=== PATIENT | male | born 1935 | race Caucasian/White ===

== ENCOUNTER → 2016-10-03 | Outpatient (CLI) | payer MEDICARE, OTHER | END | disposition home or self-care (01) | LOC: GMAB 11:34 | PROVIDERS: ATTEND Family Medicine | DX: R06.2 Wheezing (principal); R06.02 Shortness of breath ==

== ENCOUNTER 2016-10-09 09:06 | Emergency (ER) | payer MEDICARE, OTHER ==
[2016-10-09 09:32] VITALS: TEMP 98
--- NOTE | 2016-10-09 09:40 | ED.PDOC ---
History of Present Illness - General Chief Complaint: Neuro Symptoms/Deficits Stated Complaint: ams, cough Time Seen by Provider: 10/09/16 09:07 Source: patient, RN notes reviewed, Vital Signs reviewed, family Exam Limitations: no limitations - History of Present Illness Initial Comments: Per daughter, patient was diagnosed with a URI 6 days ago. He was placed on Levaquin and cough medication with Codeine. Since then he has had progressively worsening altered mental status. He has lucid periods interspersed with hallucinations and thinking it is sometime in the past. HE has only taken 3 doses of Levaquin but has almost finished the cough syrup. Daughter reports he is normally very sharp with no mental status issues. While talking to nurse he answered everything appropriately but when I went in to talk to him he kept drifting off and falling asleep. Timing/Duration: 1 week Severity: moderate Improving Factors: nothing Worsening Factors: nothing Associated Symptoms: confusion Allergies/Adverse Reactions: Allergies Morphine Allergy (Verified 10/09/16 09:33) Home Medications: Ambulatory Orders Azithromycin [Zithromax Z-Jonn] 1 ea PO DAILY #1 pack 10/09/16 Review of Systems - Review of Systems Constitutional: States: no symptoms reported EENTM: States: no symptoms reported Respiratory: States: cough. Denies: short of breath, stridor Cardiology: States: no symptoms reported. Denies: chest pain, edema, palpitations Gastrointestinal/Abdominal: States: no symptoms reported Genitourinary: States: no symptoms reported Musculoskeletal: States: no symptoms reported Skin: States: no symptoms reported Neurological: States: see HPI Endocrine: States: no symptoms reported Hematologic/Lymphatic: States: no symptoms reported Past Medical History (General) - Patient Medical History Hx Stroke: No Hx Cardiac Disorders: Yes - [place] x2 Hx Congestive Heart Failure: Yes Hx Pacemaker: Yes Hx Hypertension: Yes Hx Diabetes: Yes Hx Cancer: No Hx MRSA: No Surgical History: other - Vaccination History Hx Tetanus, Diphtheria Vaccination: No Hx Influenza Vaccination: Yes Hx Pneumococcal Vaccination: Yes - Social History Hx Tobacco Use: No Hx Alcohol Use: No Hx Substance Use: No Hx Substance Use Treatment: No Hx Depression: No - Activities of Daily Living Hospice Agency (if applicable):: None - Female History Patient is a Female of Child Bearing Age (10 -59 yrs old): No Patient : No Family Medical History - Family History Mother Family History: Unknown Living Status: Father Living Status: Cause of : [place] Physical Exam - Physical Exam General Appearance: Comfortable, No apparent distress, Well Developed, Well Groomed, Well Hydrated, Well Nourished Neck: non-tender, full range of motion, supple, lymphadenopathy (R), lymphadenopathy (L) Respiratory: no respiratory distress, no accessory muscle use, decreased breath sounds - @ bilateral bases Cardiovascular/Chest: normal peripheral pulses, regular rate, rhythm, no edema, no gallop, no JVD, no murmur Peripheral Pulses: posterior tibialis,right: 2+, posterior tibialis,left: 2+ Gastrointestinal/Abdominal: normal bowel sounds, non tender, soft, no organomegaly, no pulsatile mass Extremities Exam: non-tender, normal range of motion, no evidence of injury 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 Discussed with daughter. Suspect his symptoms are from the medication. Will stop Levaquin and cough medication. Advised to add back afternoon lasix dose for 3-7 days. Will give Rx for Zithromax to take if needed. Advised if mental status not improved in 3 days get re-evaluated. - Results/Orders Results/Orders: Laboratory Tests 10/09/16 09:45 WBC 8.1 RBC 4.61 L Hgb 14.1 Hct 42.5 MCV 92.0 MCH 30.5 MCHC 33.3 RDW 13.7 Plt Count 219 MPV 8.5 Absolute Neuts (auto) 5.50 Absolute Lymphs (auto) 1.30 Absolute Monos (auto) 0.70 Absolute Eos (auto) 0.50 H Absolute Basos (auto) 0.10 Neutrophils % 68.1 Lymphocytes % 15.7 L Monocytes % 8.7 Eosinophils % 6.1 H Basophils % 1.4 Sodium 137 Potassium 4.3 Chloride 101 Carbon Dioxide 29 Anion Gap 11.3 L BUN 22 H Creatinine 2.01 H BUN/Creatinine Ratio 10.9 Random Glucose 223 H Serum Osmolality 284.1 Calcium 8.7 Total Bilirubin 0.4 AST 16 ALT 9 L Alkaline Phosphatase 96 Creatine Kinase 67 CK-MB (CK-2) 2.8 CK-MB (CK-2) % Not Reportable Troponin I 0.02 B-Natriuretic Peptide 410.0 H* Serum Total Protein 6.7 Albumin 3.4 Globulin 3.3 Albumin/Globulin Ratio 1.0 L - EKG/XRAY/CT XRAY: chest - Mild CHF o/w nl CT Ordered: Yes - Head: no acute intracranial abnormalities. 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 Copy, Patient Portal Self Enrollment Instructions: DI for Adverse Drug Reaction -- Other, DI for Heart Failure Diet: resume usual diet Activity: increase activity as tolerated Referrals: Bello Navarro MD [Primary Care Provider] - 1-5 Days Prescriptions: Azithromycin [Zithromax Z-Jonn] 1 ea PO DAILY #1 pack Home Medications: Ambulatory Orders Azithromycin [Zithromax Z-Jonn] 1 ea PO DAILY #1 pack 10/09/16 Additional Instructions: Stop Levaquin and Cough Syrup Add back afternoon Lasix dose
--- NOTE | 2016-10-09 10:26 | CT ---
EXAM DESCRIPTION: CT head without contrast CLINICAL HISTORY: Altered Mental status COMPARISON: None available TECHNIQUE: Multiple axial images of the head without contrast. FINDINGS: There is no CT evidence of intracranial hemorrhage, mass effect, or large territory acute infarction. Moderate generalized volume loss is present. Moderate patchy hypodensities throughout the supratentorial white matter. 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 There are no abnormal extra-axial fluid collections. Calcific plaque in the visualized arteries. There is no acute calvarial defect. Moderate mucosal thickening in both maxillary sinuses and in the ethmoid air cells. The mastoid air cells are clear. IMPRESSION: 1. No CT evidence of an acute intracranial abnormality. 2. Advanced senescent changes. Electronically signed by: Shahid Hernandez MD 10/09/2016 10:25 AM CDT
--- NOTE | 2016-10-09 10:28 | RAD ---
EXAM DESCRIPTION: Chest,1 View CLINICAL HISTORY: 81 years Male, Altered Mental Status COMPARISON: 12/30/2015 IMPRESSION: The heart is enlarged with central pulmonary vascular congestion. Multilead left chest wall cardiac device again demonstrated. The thoracic aorta is tortuous and severely calcified. Mild perihilar and bibasilar interstitial opacities suggesting CHF with interstitial edema. An atypical infectious/inflammatory process may have a similar appearance. No confluent airspace consolidation, pleural effusion, or pneumothorax. No acute osseous abnormality. Electronically signed by: Shahid Hernandez MD 10/09/2016 10:27 AM CDT
[2016-10-09 10:55] VITALS: BP 144/68; O2SAT 96
== END 2016-10-09 10:58 | disposition home or self-care (01) ==
LOC: ER 09:06
DX: F19.951 Other psychoactive substance use, unspecified with psychoactive substance-induced psychotic disorder with hallucinations (principal); I11.0 Hypertensive heart disease with heart failure; I50.9 Heart failure, unspecified; I25.2 Old myocardial infarction; E11.9 Type 2 diabetes mellitus without complications; Z95.0 Presence of cardiac pacemaker; Z88.6 Allergy status to analgesic agent; Z79.899 Other long term (current) drug therapy

== ENCOUNTER → 2016-10-23 | Outpatient (CLI) | payer MEDICARE, OTHER | END | disposition home or self-care (01) | LOC: GMAB 17:31 | PROVIDERS: ATTEND Family Medicine | DX: G50.0 Trigeminal neuralgia (principal) ==

== ENCOUNTER → 2016-10-24 | Outpatient (CLI) | payer MEDICARE, OTHER ==
--- NOTE | 2016-10-25 05:51 | CT ---
Procedure: CT HEAD WITHOUT IV CONTRAST Exam date: 10/24/2016 11:42 AM CDT Ordering Provider: FOREIGN FLOR Clinical Indication: TIA Comparison: 10/09/2016 Technique: Using a helical scanner, sequential axial imaging of the brain was obtained without the administration of intravenous contrast. The exam was obtained from the skull base to vertex. Findings: Stable region of remote encephalomalacia seen within the superior right posterior frontal lobe. Patchy, diffuse subcortical white matter hypoattenuations, nonspecific yet most suggestive of microvascular ischemic change. Global parenchymal volume loss as well as intracranial atherosclerosis. There is no midline shift or hydrocephalus. There is no acute intracranial hemorrhage or mass effect. There is no CT evidence for acute cortical infarct. Normal-appearing lane and white matter with appropriate sulcation and normal parenchymal volume. The calvarium is intact. There is no fracture. There is no lytic or sclerotic lesion. The visualized paranasal sinuses and mastoid air cells are clear. IMPRESSION: 1. Nonacute CT scan of the brain without intravenous contrast administration. 2. Global parenchymal volume loss and microvascular ischemic changes. 3. Stable small remote right frontal lobe infarction. Electronically signed by: Aramis Duarte MD 10/25/2016 5:50 AM CDT
--- NOTE | 2016-10-25 05:53 | US ---
Procedure: US CAROTID DOPPLER BILATERAL Exam Date: 10/24/2016 11:41 AM CDT Ordering Provider: FOREIGN FLOR Clinical Indication: TIA Comparison: None TECHNIQUE : Real-time cerebrovascular ultrasonography was obtained from sternal notch to the angle of the mandible bilaterally utilizing lane scale, color flow and spectral Doppler analysis. Systolic velocity ratios were calculated for internal carotid artery to common carotid artery bilaterally. FINDINGS: RIGHT CAROTID BIFURCATION: Moderate atherosclerotic plaque. Peak systolic and end-diastolic velocities in the right internal carotid artery are 47 and 13 cm/s. Internal carotid/common carotid ratio is 0.9. Right vertebral flow is antegrade. LEFT CAROTID BIFURCATION: Moderate atherosclerotic plaque. Peak systolic and end-diastolic velocities in the left internal carotid artery are 64 and 14 cm/s. Internal carotid/common carotid ratio is 0.8. Left vertebral flow is antegrade. IMPRESSION: 1. Moderate atherosclerotic plaque in each carotid bulb and ICA origin. 2. There is no significant stenosis (34% on the right and 35% of the left) at both ICA origins. 3. Bilateral antegrade vertebral artery flow. Electronically signed by: Aramis Duarte MD 10/25/2016 5:52 AM CDT
== END | disposition home or self-care (01) ==
LOC: CT 11:34
PROVIDERS: ATTEND Family Medicine
DX: G45.9 Transient cerebral ischemic attack, unspecified (principal)

== ENCOUNTER 2016-11-19 01:26 | Emergency (ER) | payer MEDICARE, OTHER ==
--- NOTE | 2016-11-19 02:25 | ED.PDOC ---
History of Present Illness - General Chief Complaint: Neuro Symptoms/Deficits Time Seen by Provider: 11/19/16 01:26 Source: patient, RN notes reviewed, Vital Signs reviewed, family Exam Limitations: clinical condition - History of Present Illness Timing/Duration: other - Patient slept for about 20 + hours prior to EMS being called Severity: moderate Improving Factors: other - D50 Worsening Factors: nothing Associated Symptoms: cough, shortness of breath, weakness, other - lethargy Allergies/Adverse Reactions: Allergies Codeine Allergy (Verified 11/19/16 01:53) Morphine Allergy (Verified 10/09/16 09:33) Home Medications: Ambulatory Orders Amlodipine Besylate-Atorvastat 11/19/16 Aspirin 11/19/16 Coreg 11/19/16 Donepezil HCl 11/19/16 Duloxetine HCl 11/19/16 Entresto 49-51 mg 11/19/16 Flomax 11/19/16 Gabapentin 11/19/16 Lasix 11/19/16 Plavix 11/19/16 Potassium 11/19/16 Synthroid 11/19/16 Review of Systems - Review of Systems Constitutional: States: malaise EENTM: States: no symptoms reported Respiratory: States: cough, short of breath Cardiology: States: no symptoms reported Gastrointestinal/Abdominal: States: no symptoms reported Genitourinary: States: no symptoms reported Musculoskeletal: States: no symptoms reported Skin: States: no symptoms reported Neurological: States: see HPI, other - Altered mental status Endocrine: States: no symptoms reported Hematologic/Lymphatic: States: no symptoms reported All other Systems: Reviewed and Negative Past Medical History (General) - Patient Medical History Hx Stroke: No Hx Cardiac Disorders: Yes - [place] x2 Hx Congestive Heart Failure: Yes Hx Pacemaker: Yes Hx Hypertension: Yes Hx Thyroid Disease: Yes Hx Diabetes: Yes Hx Cancer: No Hx MRSA: No - Vaccination History Hx Tetanus, Diphtheria Vaccination: Yes Hx Influenza Vaccination: Yes Hx Pneumococcal Vaccination: Yes Immunizations Up to Date: Yes - Social History Hx Tobacco Use: No Hx Alcohol Use: No Hx Substance Use: No Hx Substance Use Treatment: No Hx Depression: No Feels Threatened In a Relationship: No Hx Physical Abuse: No Hx Emotional Abuse: No Hx Suspected Abuse: No - Activities of Daily Living Hospice Agency (if applicable):: None - Female History Patient : No Family Medical History - Family History Mother Family History: Unknown Living Status: Father Living Status: Cause of : [place] Physical Exam - Physical Exam General Appearance: Alert, Comfortable, No apparent distress Eye Exam: bilateral normal Ears, Nose, Throat: normal ENT inspection Neck: normal inspection Respiratory: no respiratory distress, no accessory muscle use, rhonchi, wheezing Cardiovascular/Chest: irregularly irregular Gastrointestinal/Abdominal: normal bowel sounds, non tender, soft, no organomegaly Extremity: pedal edema, swelling Neurologic: alert, other - Oriented x 2, has difficulty forming thoughts and words Skin Exam: normal color, warm/dry Progress - Results/Orders Results/Orders: 11/19/16 11/19/16 01:26 02:26 Temperature 98 F 98.2 F Pulse Rate [ 80 78 tele] Respiratory 20 16 Rate Blood Pressure 142/77 141/78 [left upper arm ] O2 Sat by Pulse 88 L 98 Oximetry 11/19/16 02:36 URINALYSIS Stat Laboratory Results WBC 8.2 K/mm3 (4.8-10.8) 11/19/16 01:40 RBC 4.31 M/mm3 (4.70-6.10) L 11/19/16 01:40 Hgb 13.2 gm/dL (14.0-18.0) L 11/19/16 01:40 Hct 40.4 % (42.0-52.0) L 11/19/16 01:40 MCV 93.7 fl (80.0-94.0) 11/19/16 01:40 MCH 30.6 pg (27.0-31.0) 11/19/16 01:40 MCHC 32.6 g/dL (33.0-37.0) L 11/19/16 01:40 RDW 14.5 % (11.5-14.5) 11/19/16 01:40 Plt Count 145 K/mm3 (130-400) 11/19/16 01:40 MPV 9.8 fl (7.40-10.4) 11/19/16 01:40 Absolute Neuts (auto) 6.20 K/uL (1.8-6.8) 11/19/16 01:40 Absolute Lymphs (auto) 1.10 K/uL (1.0-3.4) 11/19/16 01:40 Absolute Monos (auto) 0.80 K/uL (0.2-0.8) 11/19/16 01:40 Absolute Eos (auto) 0.00 K/uL (0.0-0.4) 11/19/16 01:40 Absolute Basos (auto) 0.10 K/uL (0.0-0.1) 11/19/16 01:40 Neutrophils % 74.6 % (42.0-78.0) 11/19/16 01:40 Lymphocytes % 13.6 % (20.0-50.0) L 11/19/16 01:40 Monocytes % 10.3 % (2.0-9.0) H 11/19/16 01:40 Eosinophils % 0.5 % (1.0-5.0) L 11/19/16 01:40 Basophils % 1.0 % (0.0-2.0) 11/19/16 01:40 PT 11.9 SECONDS (9.4-12.5) 11/19/16 01:40 INR 1.050 11/19/16 01:40 PTT (SP) 25.2 SECONDS (25.1-36.5) 11/19/16 01:40 Sodium 137 mmol/L (135-145) 11/19/16 01:40 Potassium 4.7 mmol/L (3.6-5.0) 11/19/16 01:40 Chloride 104 mmol/L (101-111) 11/19/16 01:40 Carbon Dioxide 27 mmol/L (21-31) 11/19/16 01:40 Anion Gap 10.7 (12-18) L 11/19/16 01:40 BUN 25 mg/dL (7-18) H 11/19/16 01:40 Creatinine 2.19 mg/dL (0.6-1.3) H 11/19/16 01:40 BUN/Creatinine Ratio 11.4 (10-20) 11/19/16 01:40 Random Glucose 129 mg/dL (70-105) H 11/19/16 01:40 Serum Osmolality 279.9 mOsm/L (275-295) 11/19/16 01:40 Calcium 8.5 mg/dL (8.4-10.2) 11/19/16 01:40 Magnesium 1.7 mg/dL (1.8-2.5) L 11/19/16 01:40 Total Bilirubin 0.8 mg/dL (0.2-1.0) 11/19/16 01:40 Direct Bilirubin 0.1 mg/dL (0-0.2) 11/19/16 01:40 Indirect Bilirubin 0.7 mg/dL (0.2-0.8) 11/19/16 01:40 AST 17 IU/L (10-42) 11/19/16 01:40 ALT < 8 IU/L (10-60) L 11/19/16 01:40 Alkaline Phosphatase 82 IU/L (42-121) 11/19/16 01:40 Creatine Kinase 60 IU/L (38-174) 11/19/16 01:40 CK-MB (CK-2) 5.1 ng/mL (0.0-4.4) H* 11/19/16 01:40 CK-MB (CK-2) % Not Reportable 11/19/16 01:40 Troponin I 0.30 ng/mL (0.01-0.05) H* 11/19/16 01:40 B-Natriuretic Peptide 441.0 pg/ml (0-100) H* 11/19/16 01:40 Serum Total Protein 6.6 gm/dL (6.4-8.2) 11/19/16 01:40 Albumin 3.3 g/dl (3.2-5.5) 11/19/16 01:40 Globulin Cancelled 11/19/16 01:40 Albumin/Globulin Ratio Cancelled 11/19/16 01:40 - EKG/XRAY/CT EKG: Atrial, Fibrillation - 86 bpm, Unchanged from - 12/30/2015 Comments: LAD, irregular intervals--Afib Departure - Departure Clinical Impression: NSTEMI (non-ST elevated myocardial infarction) Congestive heart failure Qualifiers: Congestive heart failure type: unspecified congestive heart failure type Congestive heart failure chronicity: unspecified congestive heart failure chronicity Qualified Code(s): I50.9 - Heart failure, unspecified Chronic kidney disease Qualifiers: Chronic kidney disease stage: unspecified stage Qualified Code(s): N18.9 - Chronic kidney disease, unspecified Time of Disposition: 03:18 Disposition: Transfer to Hospital Referrals: Bello Navarro MD [Primary Care Provider] - 1-2 Weeks Home Medications: Ambulatory Orders Amlodipine Besylate-Atorvastat 11/19/16 Aspirin 11/19/16 Coreg 11/19/16 Donepezil HCl 11/19/16 Duloxetine HCl 11/19/16 Entresto 49-51 mg 11/19/16 Flomax 11/19/16 Gabapentin 11/19/16 Lasix 11/19/16 Plavix 11/19/16 Potassium 11/19/16 Synthroid 11/19/16 Transfer to Outside Facility - Transfer Information Accepting Provider:: Dr. Salas Accepting Facility: [facility] Reason for Transfer: required specialist not available
--- NOTE | 2016-11-19 03:05 | RAD ---
EXAM: Single view chest. INDICATION: Chest pain. COMPARISON: Chest x-ray: 10/09/2016. FINDINGS: Cardiac silhouette: Enlarged with a left chest wall pacemaker/AICD in place Kristina: Unremarkable. Lobar consolidation: None. Pleural effusion: A small right pleural effusion may be present. Pneumothorax: None. Other: There are diffuse interstitial opacities Bones: Unremarkable. Other: None. IMPRESSION: Diffuse interstitial opacities, likely representing pulmonary edema. Electronically signed by: Edward Quijano MD 11/19/2016 3:05 AM CDT
--- NOTE | 2016-11-19 03:07 | CT ---
EXAM: CT head without contrast. INDICATION: Headache. TECHNIQUE: Contiguous axial CT images of the brain. Intravenous contrast: Absent. DLP 773 mGy-cm. This exam was performed according to our departmental dose-optimization program, which includes automated exposure control, adjustment of the mA and/or kV according to patient size and/or use of iterative reconstruction technique. COMPARISON: 10/24/2016. FINDINGS: Subcutaneous: Unremarkable. No acute intracranial hemorrhage. There is diffuse cerebral atrophy with moderate periventricular and deep white matter chronic microvascular changes. No midline shift. No mass effect. Ventricles: No hydrocephalus. Vaughn-white differentiation preserved. Paranasal sinuses/mastoid air cells: There is mild mucosal thickening of the paranasal sinuses. Bones/orbits: Visualized portions are unremarkable. IMPRESSION: 1. No CT evidence of acute intracranial hemorrhage. Electronically signed by: Edward Quijano MD 11/19/2016 3:07 AM CDT
[2016-11-19] MEDS ORDERED: ENOXAPARIN SODIUM 80 MG/0.8 ML SYG SUBCU ONE (03:14)
[2016-11-19] MEDS ORDERED: ACETAMINOPHEN 500 MG TAB ONE (03:14)
[2016-11-19] MEDS ORDERED: ENOXAPARIN SODIUM 30 MG/0.3 ML SYG SUBCU ONE (03:14)
[2016-11-19] MEDS: ASPIRIN TABLET 325 MG TAB PO ONE (03:15)
[2016-11-19] MEDS: ACETAMINOPHEN 500 MG TAB PO ONE (03:18)
[2016-11-19] MEDS ORDERED: ASPIRIN TABLET 325 MG TAB ONE (03:37)
[2016-11-19 03:56] VITALS: BP 108/42; TEMP 97.6; O2SAT 97
== END 2016-11-19 03:39 | disposition short-term general hospital (02) ==
LOC: ER 01:26
DX: I21.4 Non-ST elevation (NSTEMI) myocardial infarction (principal); N18.9 Chronic kidney disease, unspecified; I25.2 Old myocardial infarction; I50.9 Heart failure, unspecified; I13.0 Hypertensive heart and chronic kidney disease with heart failure and stage 1 through stage 4 chronic kidney disease, or unspecified chronic kidney disease; E11.9 Type 2 diabetes mellitus without complications; E07.9 Disorder of thyroid, unspecified; Z95.0 Presence of cardiac pacemaker; Z79.82 Long term (current) use of aspirin; Z79.899 Other long term (current) drug therapy; Z79.02 Long term (current) use of antithrombotics/antiplatelets; Z88.6 Allergy status to analgesic agent; Z82.49 Family history of ischemic heart disease and other diseases of the circulatory system
CPT/HCPCS: 36415; 70450; 71010; 80048; 80076; 82550; 82553; 83880; 84484; 85025; 85610; 85730; 93005; J1650

== ENCOUNTER → 2016-12-06 | Outpatient (CLI) | payer MEDICARE, OTHER | END | disposition home or self-care (01) | LOC: GMAB 11:16 | PROVIDERS: ATTEND Family Medicine | DX: N18.4 Chronic kidney disease, stage 4 (severe) (principal) ==

== ENCOUNTER → 2017-02-26 | Outpatient (CLI) | payer MEDICARE, OTHER | END | disposition home or self-care (01) | LOC: GMAB 09:26 | PROVIDERS: ATTEND Family Medicine | DX: N18.4 Chronic kidney disease, stage 4 (severe) (principal) ==

== ENCOUNTER → 2017-03-29 | Outpatient (CLI) | payer MEDICARE, OTHER | END | disposition home or self-care (01) | LOC: GMAB 14:03 | PROVIDERS: ATTEND Family Medicine | DX: M10.9 Gout, unspecified (principal) ==

== ENCOUNTER → 2017-06-05 | Outpatient (CLI) | payer MEDICARE, OTHER | END | disposition home or self-care (01) | LOC: GMAB 10:57 | PROVIDERS: ATTEND Family Medicine | DX: Z12.5 Encounter for screening for malignant neoplasm of prostate (principal); E03.9 Hypothyroidism, unspecified | CPT/HCPCS: 84439; 84443; 84481; G0103 ==

== ENCOUNTER → 2017-08-29 | Outpatient (CLI) | payer OTHER | LOC: GMAB 13:21 | PROVIDERS: ATTEND Family Medicine | DX: N18.4 Chronic kidney disease, stage 4 (severe) (principal) ==

== ENCOUNTER → 2017-11-05 | Outpatient (CLI) | payer OTHER | LOC: GMAB 11:41 | PROVIDERS: ATTEND Family Medicine | DX: Z51.81 Encounter for therapeutic drug level monitoring (principal) ==

== ENCOUNTER 2017-12-13 17:08 | Emergency (ER) | payer OTHER ==
[2017-12-13] MEDS ORDERED: ASPIRIN TABLET 325 MG TAB PO ONE (17:45)
--- NOTE | 2017-12-13 18:12 | RAD ---
EXAM DESCRIPTION: Chest,1 View CLINICAL HISTORY:82 years Male, Chest pain Comparison: November 19, 2016 FINDINGS: No focal lung consolidation. No pleural effusion. No pneumothorax. Enlarged chronic silhouette, unchanged. Left sided cardiac device. Atherosclerotic vascular calcifications. No acute osseous abnormality. Soft tissues are unremarkable. IMPRESSION: No focal lung consolidation. Enlarged cardiac silhouette, unchanged. No change from prior. Electronically signed by: Mynor Perez MD 12/13/2017 6:11 PM CDT
--- NOTE | 2017-12-13 21:36 | ED.PDOC ---
History of Present Illness - General Chief Complaint: Chest Pain/[place] Time Seen by Provider: 12/13/17 18:17 - History of Present Illness Allergies/Adverse Reactions: Allergies Codeine Allergy (Verified 12/13/17 17:37) Other Makes him "go crazy" Morphine Allergy (Verified 12/13/17 17:37) Other Makes him "go crazy" Home Medications: Ambulatory Orders Aspirin [Aspirin EC Low Dose] 81 mg PO DAILY 11/19/16 Amlodipine Besylate-Atorvastat [Amlodipine Besylate/Atorv 10-10 mg] 1 tab PO DAILY 12/13/17 Carvedilol [Carvedilol] 1 tablet PO BID 12/13/17 Clopidogrel Bisulfate [Plavix] 75 mg PO DAILY 12/13/17 Donepezil Hydrochloride [Donepezil HCl] 10 mg PO BEDTIME 12/13/17 Fluoxetine HCl 40 mg PO DAILY 12/13/17 Insulin Degludec [Tresiba Flextouch] 20 unit INJ DAILY 12/13/17 Levothyroxine Sodium [Synthroid] 100 mcg PO DAILY 12/13/17 Sacubitril-Valsartan [Entresto 49-51 mg] 1 tablet PO DAILY 12/13/17 Tamsulosin [Flomax] 0.4 mg PO DAILY 12/13/17 Past Medical History (General) - Patient Medical History Hx Stroke: Yes Hx of COPD: Yes Hx Cardiac Disorders: Yes - PVD; [place], stents; Hx AAA Hx Congestive Heart Failure: Yes Hx Pacemaker: Yes - pacemaker/defib Hx Hypertension: Yes Hx Thyroid Disease: Yes Hx Diabetes: Yes Hx Cancer: No Hx MRSA: No Surgical History: coronary bypass surgery, tonsillectomy, other - Vaccination History Hx Tetanus, Diphtheria Vaccination: Yes Hx Influenza Vaccination: No Hx Pneumococcal Vaccination: Yes - Social History Hx Tobacco Use: Yes - Quit 1996 Hx Alcohol Use: No Hx Substance Use: No Hx Substance Use Treatment: No Hx Depression: No Hx Physical Abuse: No Hx Emotional Abuse: No Hx Suspected Abuse: No - Female History Patient : No Family Medical History - Family History Mother Family History: Unknown Living Status: Father Living Status: Cause of : [place] Progress - Progress Progress: 12/13/17 21:33 NO FURTHER CP. PT DOES NOT WANT TO STAY. - EKG/XRAY/CT EKG: Atrial, Fibrillation - RATE 76, LAD, nonspecific ST T wave Chg - NAIP, , Unchanged from - 11/29/16 XRAY: chest - CLYDE Departure - Departure Clinical Impression: Atypical chest pain Atrial fibrillation Qualifiers: Atrial fibrillation type: chronic Qualified Code(s): I48.2 - Chronic atrial fibrillation Hypertension Qualifiers: Hypertension type: essential hypertension Qualified Code(s): I10 - Essential ( primary) hypertension Time of Disposition: 21:43 Disposition: Discharge to Home or Self Care Condition: Good Departure Forms: ED Discharge - Pt. Copy, Patient Portal Self Enrollment Instructions: DI for Chest Pain Referrals: Bello Navarro MD [Primary Care Provider] - 1-2 Weeks Home Medications: Ambulatory Orders Aspirin [Aspirin EC Low Dose] 81 mg PO DAILY 11/19/16 Amlodipine Besylate-Atorvastat [Amlodipine Besylate/Atorv 10-10 mg] 1 tab PO DAILY 12/13/17 Carvedilol [Carvedilol] 1 tablet PO BID 12/13/17 Clopidogrel Bisulfate [Plavix] 75 mg PO DAILY 12/13/17 Donepezil Hydrochloride [Donepezil HCl] 10 mg PO BEDTIME 12/13/17 Fluoxetine HCl 40 mg PO DAILY 12/13/17 Insulin Degludec [Tresiba Flextouch] 20 unit INJ DAILY 12/13/17 Levothyroxine Sodium [Synthroid] 100 mcg PO DAILY 12/13/17 Sacubitril-Valsartan [Entresto 49-51 mg] 1 tablet PO DAILY 12/13/17 Tamsulosin [Flomax] 0.4 mg PO DAILY 12/13/17
[2017-12-13 22:34] VITALS: BP 141/70; TEMP 98; O2SAT 95
== END 2017-12-13 22:10 | disposition home or self-care (01) ==
LOC: ER 17:08
DX: R07.89 Other chest pain (principal); I48.2 Chronic atrial fibrillation; I11.0 Hypertensive heart disease with heart failure; I50.9 Heart failure, unspecified; E07.9 Disorder of thyroid, unspecified; E11.9 Type 2 diabetes mellitus without complications; I25.2 Old myocardial infarction; Z95.1 Presence of aortocoronary bypass graft; Z98.61 Coronary angioplasty status; Z86.73 Personal history of transient ischemic attack (TIA), and cerebral infarction without residual deficits; Z87.891 Personal history of nicotine dependence; Z79.82 Long term (current) use of aspirin; Z79.4 Long term (current) use of insulin

== ENCOUNTER → 2017-12-27 | Outpatient (CLI) | payer OTHER | LOC: GMAB 10:30 | PROVIDERS: ATTEND Family Medicine | DX: N18.4 Chronic kidney disease, stage 4 (severe) (principal) ==

== ENCOUNTER → 2018-01-07 | Outpatient (CLI) | payer OTHER | LOC: GMAL 11:55 | PROVIDERS: ATTEND Family Medicine | DX: E53.8 Deficiency of other specified B group vitamins (principal); E03.9 Hypothyroidism, unspecified; E55.9 Vitamin D deficiency, unspecified ==

== ENCOUNTER 2018-04-19 13:55 | Emergency (ER) | payer OTHER ==
[2018-04-19 14:12] VITALS: TEMP 98.1
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
[2018-04-19 16:48] VITALS: BP 125/82; O2SAT 97
== END 2018-04-19 16:48 | disposition home or self-care (01) ==
LOC: ER 13:55
DX: R07.82 Intercostal pain (principal); I48.91 Unspecified atrial fibrillation; J44.9 Chronic obstructive pulmonary disease, unspecified; I25.2 Old myocardial infarction; I50.9 Heart failure, unspecified; E11.9 Type 2 diabetes mellitus without complications; I10 Essential (primary) hypertension; I73.9 Peripheral vascular disease, unspecified; Z95.0 Presence of cardiac pacemaker; Z95.5 Presence of coronary angioplasty implant and graft; Z79.4 Long term (current) use of insulin; Z79.899 Other long term (current) drug therapy; Z87.891 Personal history of nicotine dependence

== ENCOUNTER → 2018-05-17 | Outpatient (CLI) | payer OTHER | LOC: GMAL 13:49 | PROVIDERS: ATTEND Family Medicine | DX: E53.8 Deficiency of other specified B group vitamins (principal); E55.9 Vitamin D deficiency, unspecified ==